=== PATIENT | female | born 1995 | race African-American/Black ===

== ENCOUNTER 2020-03-22 11:43 | Observation (INO) | payer MEDICAID ==
[~2020-03-22] VITALS: Ht 157.5 cm; Wt 59.9 kg
[2020-03-22] MEDS ORDERED: DEXT 5%/LR + PITOCIN 20UNITS/L 1,000 ML IV SCH (13:00)
[2020-03-22] MEDS ORDERED: AMPICILLIN 2,000 MG in SODIUM CHLORIDE 0.9% 100 ML IV SCH (13:30)
[2020-03-22] MEDS ORDERED: AZITHROMYCIN 500 MG in DEXT 5% WATER 250 ML IV SCH (14:00)
[2020-03-22] MEDS: LACTATED RINGERS 1,000 ML IV SCH (14:44)
[2020-03-22 14:49] LABS: CLARITY URINE CLEAR (CLEAR); COLOR URINE YELLOW (YELLOW); KETONES URINE NEGATIVE (NEGATIVE); LEUKOCYTE ESTERASE URINE TRACE (NEGATIVE); NITRITE URINE NEGATIVE (NEGATIVE); OCCULT BLOOD URINE TRACE (NEGATIVE); PH URINE 6.5 (4.5-8.0); PROTEIN URINE TRACE (NEGATIVE); SPECIFIC GRAVITY URINE 1.014 (1.005-1.030); UROBILINOGEN URINE 0.2 E.U./dL (0.2-1.0)
[2020-03-22 14:52] LABS: BASOPHILS % 0.5 % (0.0-2.0); EOSINOPHILS % 2.5 % (0.0-5.0); HEMATOCRIT. 38.2 % (36.0-48.0); HEMOGLOBIN. 12.9 g/dL (12.0-16.0); LYMPHOCYTES % 18.1 % (20.0-50.0); MEAN CORPUSCULAR HEMOGLOBIN 31.3 pg (28.0-32.0); MEAN CORPUSCULAR VOLUME 92.8 fL (81.0-99.0); MEAN PLATELET VOLUME 9.2 fl (7.4-10.4); MONOCYTES % 6.8 % (2.0-8.0); NEUTROPHILS % 72.1 % (40.0-76.0); PLATELET 206 x1000/uL (130-400); RED BLOOD CELL COUNT 4.12 mill/uL (4.2-5.4); RED CELL DISTRIBUTION WIDTH 13.4 % (11.6-14.6)
[2020-03-22 14:55] LABS: INR 0.9; PROTHROMBIN TIME 10.1 sec (9.6-11.0)
[2020-03-22] MEDS: MAGNESIUM 20 G PREMIX (L & D) 500 ML IV SCH ×2 (15:06→23:38)
[2020-03-22 15:08] LABS: *AMPHETAMINES SCREEN URINE NEGATIVE (NEGATIVE); *BARBITURATES SCREEN URINE NEGATIVE (NEGATIVE); *BENZODIAZEPINES SCREEN URINE NEGATIVE (NEGATIVE)
[2020-03-22 15:09] LABS: CANNABINOID URINE SCREEN NEGATIVE (NEGATIVE); METHADONE URINE SCREEN NEGATIVE (NEGATIVE); OPIATES URINE SCREEN NEGATIVE (NEGATIVE); PHENCYCLIDINE URINE SCREEN NEGATIVE (NEGATIVE)
[2020-03-22 15:11] LABS: *COCAINE SCREEN URINE NEGATIVE (NEGATIVE)
[2020-03-22 15:20] LABS: CHLORIDE 106 mEq/L (98-107)
[2020-03-22] MEDS: BETAMETHASONE ACET/BETAMET 30 MG/5 ML VIAL IM SCH (15:21)
[2020-03-22] MEDS ORDERED: PREN1TAB78 MT (18:04)
[2020-03-22] MEDS ORDERED: ALBU6.7H9 INH (18:04)
[2020-03-22] MEDS: AMPICILLIN 1,000 MG in SODIUM CHLORIDE 0.9% 50 ML IV SCH (21:24)
[2020-03-23] MEDS ORDERED: BETAMETHASONE ACET/BETAMET 30 MG/5 ML VIAL IM SCH (01:00)
[2020-03-23] MEDS: LACTATED RINGERS 1,000 ML IV SCH (02:02)
[2020-03-23] MEDS: AMPICILLIN 1,000 MG in SODIUM CHLORIDE 0.9% 50 ML IV SCH ×2 (02:49→08:49)
[2020-03-23 09:39] VITALS: BP 129/75
[2020-03-23] MEDS: MAGNESIUM 20 G PREMIX (L & D) 500 ML IV SCH (09:39)
[2020-03-23 13:12] LABS: HEPATITIS B SURFACE ANTIGEN NEGATIVE
[2020-03-23] MEDS ORDERED: AZITHROMYCIN 250 MG in DEXT 5% WATER 250 ML IV SCH (14:00)
[2020-03-23] MEDS: BETAMETHASONE ACET/BETAMET 30 MG/5 ML VIAL IM SCH (14:54)
== END 2020-03-23 15:10 | disposition left against medical advice (07) ==
LOC: 8 EST LDRP 11:43
PROVIDERS: ADMIT Obstetrics & Gynecology; ATTEND Obstetrics & Gynecology
DX: O42.913 Preterm premature rupture of membranes, unspecified as to length of time between rupture and onset of labor, third trimester (principal); O41.03X0 Oligohydramnios, third trimester, not applicable or unspecified; Z3A.32 32 weeks gestation of pregnancy
CPT/HCPCS: 36415; 76805; 76818; 80053; 80305; 81003; 83735; 85025; 85610; 85730; 86592; 86703; 86762; 86850; 86900; 86901; 87340; 96365; 96366; 96368; 96372; 99281; G0378; J0290; J0456; J0702; J3475; J7050; J7060; J7120; 59412; 96367

== ENCOUNTER 2022-03-31 11:01 | Emergency (ER) | payer MEDICAID ==
[~2022-03-31] VITALS: Ht 157.5 cm; Wt 57.0 kg
[~2022-03-31 11:01] MED LIST: ALBU6.7H9 INH; PREN1TAB78 MT
[2022-03-31 11:04] VITALS: BP 112/72
[2022-03-31 11:37] LABS: CLARITY URINE CLOUDY (CLEAR); COLOR URINE YELLOW (YELLOW); KETONES URINE 1+ (NEGATIVE); LEUKOCYTE ESTERASE URINE 2+ (NEGATIVE); NITRITE URINE NEGATIVE (NEGATIVE); OCCULT BLOOD URINE NEGATIVE (NEGATIVE); PH URINE 5.5 (4.5-8.0); PROTEIN URINE NEGATIVE (NEGATIVE); SPECIFIC GRAVITY URINE 1.029 (1.005-1.030); UROBILINOGEN URINE 0.2 E.U./dL (0.2-1.0)
[2022-03-31] MEDS ORDERED: CEFTRIAXONE SODIUM 500 MG/VIAL IM ONE (15:30)
[2022-03-31] MEDS ORDERED: DOXY-326 MT ×3 (15:32→16:23)
[2022-03-31] MEDS ORDERED: METR500T MT (16:22)
[2022-04-04 04:07] LABS: NEISSERIA GONORRHOEAE NAA Negative (Negative)
== END 2022-03-31 16:57 | disposition home or self-care (01) ==
LOC: ER 11:01
DX: A56.02 Chlamydial vulvovaginitis (principal)
CPT/HCPCS: 81003; 87086; 87210; 87491; 87591; 96372; 99284; J0696

== ENCOUNTER 2022-06-16 15:20 | Emergency (ER) | payer MEDICAID ==
[~2022-06-16] VITALS: Ht 157.5 cm; Wt 54.0 kg
[~2022-06-16 15:20] MED LIST changes: +DOXY-326 MT; +METR500T MT
[2022-06-16 15:27] VITALS: BP 122/83
== END 2022-06-16 20:41 | disposition left against medical advice (07) ==
LOC: ER 15:20
DX: Z53.21 Procedure and treatment not carried out due to patient leaving prior to being seen by health care provider (principal)